=== PATIENT | female | born 1935 ===

== ENCOUNTER 2023-02-14 09:49 | Outpatient (CLI) | payer OTHER | END 2023-02-14 09:50 | disposition home or self-care (01) | LOC: NUCLEAR 09:49 | PROVIDERS: ATTEND Surgery | DX: I73.9 Peripheral vascular disease, unspecified (principal) ==

== ENCOUNTER 2023-02-15 09:17 | Outpatient (CLI) | payer OTHER | END 2023-02-15 09:18 | disposition home or self-care (01) | LOC: NUCLEAR 09:17 | PROVIDERS: ATTEND Surgery | DX: I87.2 Venous insufficiency (chronic) (peripheral) (principal) ==